=== PATIENT | female | born 1970 | race Native Hawaiian/Other Pacific Islander ===

== ENCOUNTER 2020-06-29 16:32 | Outpatient (REF) | payer OTHER, SELFPAY ==
[2020-06-29 17:17] LABS: COVID-19 Test Negative (Negative); IDNOW Serial# 55D5AD1C
== END 2020-06-29 16:33 | disposition home or self-care (01) ==
LOC: HO.EMPCOV 16:32
PROVIDERS: Visit Provider Internal Medicine
DX: Z20.828 Contact with and (suspected) exposure to other viral communicable diseases (principal)
CPT/HCPCS: 87635; C9803; U0003

== ENCOUNTER 2020-11-26 22:12 | Emergency (ER) | payer OTHER, SELFPAY ==
--- NOTE | ~2020-11-26 | XR_ITS ---
EXAMINATION: XR SHOULDER, RIGHT CLINICAL INFORMATION: Rule out fracture or dislocation COMPARISON: None TECHNIQUE: AP external rotation, Grashey, scapular Y, and axillary views of the right shoulder. FINDINGS: There is mild acromioclavicular osteoarthritis. Glenohumeral joint space is fairly well-maintained.. No fracture. Alignment is anatomic. Soft tissues are normal with no abnormal calcifications. XR/XR shoulder RT min 2V IMPRESSION: Mild right acromioclavicular joint arthrosis. No acute osseous abnormality.
[2020-11-26 22:47] VITALS: BP 137/84; PULSE 92; RESP 16; TEMP 36.4; O2SAT 98; BMI 26.6
[2020-11-27] MEDS: oxyCODONE HCl Immed Release 5 MG TABLET PO (01:03)
--- NOTE | 2020-11-27 01:20 | ED_ITS ---
HPI - Extremity Problem General Chief complaint: Extremity Injury, Upper Stated complaint: shoulder inj Time Seen by Provider: 11/27/20 00:52 History of Present Illness HPI Narrative: 50-year-old healthy female presenting to the ED after right shoulder injury. Patient states she was exercising when he fell and then heard a pop. Since is having intense right upper shoulder pain. Denies head injury or trauma. Denies chest pain or shortness of breath. Did not take any medication before coming in. Has no previous injuries to this shoulder. Related Data Allergies Allergy/AdvReac Type Severity Reaction Status Date / Time ampicillin Allergy Unknown hives Verified 08/04/19 00:00 terbutaline Allergy Unknown hives Verified 08/04/19 00:00 bee venom Allergy Unknown anaphylaxis Uncoded 08/04/19 00:00 Review of Systems Review of Systems: Constitutional : No Weight loss, No Fever, No Chills, No Night Sweats, No Fatigue, No Malaise ENT/Mouth : No Hearing loss, No Ear Pain, No Nasal Congestion, No Sinus Pain, No Hoarseness, No sore throat, No Rhinorrhea, No Swallowing Difficulty Eyes: No Eye Pain, No Swelling, No Redness, No Foreign Body, No Discharge, No Vision Changes Cardiovascular : No Chest Pain, No SOB, No Dyspnea on Exertion, No Orthopnea, No Edema, No Palpitations Respiratory : No Cough, No Sputum, No Wheezing, No Smoke Exposure, No Dyspnea Gastrointestinal : No Nausea, No Vomiting, No Diarrhea, No Constipation, No abdominal Pain, No Hematochezia, No Melena Genitourinary : no irregular bleeding, No Dysuria, No Urinary Frequency, No Hematuria, No Urinary Incontinence, No Urgency, No Flank Pain, No Urinary Flow Changes, No Hesitancy Musculoskeletal : + joint pain, + Myalgias, No Joint Swelling Skin : No Skin Lesions, No rash Neuro : No Weakness, No Numbness, No Paresthesias, No Loss of Consciousness, No Dizziness, No Headache Psych : No Anxiety/Panic, No Depression, No SI/HI/AH/VH, No Social Issues, Heme/Lymph: No Bruising, No Bleeding,No Lymphadenopathy Endocrine : No Polyuria, No Polydipsia, No Temperature Intolerance PMFSH Past Medical History Attestation statement: The following information was validated with the patient. Source: old records reviewed and nursing notes reviewed Medical History (Updated 11/27/20 @ 01:22 by MATILDA Rinaldi) Depression Social History Social History Advance Directives: No Advance Directives Information Provided: No Physical Exam Vital Signs: Vital Signs: Last Vital Signs Temp 97.5 F 11/26/20 22:47 Pulse 92 11/26/20 22:47 Resp 16 11/26/20 22:47 BP 137/84 11/26/20 22:47 Pulse Ox 98 11/26/20 22:47 Body Mass Index 26.6 vital signs have been reviewed as normal and appeared to be correct. Blood pressure normal. Heart rate normal. Respiration rate normal. Temperature normal. Oxygen saturation normal. Appearance: Alert. Oriented X3. Mild acute distress. Head: Normal external exam. Normocephalic. Atraumatic. No Torres signs noted. No raccoon eyes noted Eyes: PERRLA. Conjunctiva and sclera normal. Eyelids normal. ENT: Moist mucous membranes. No trismus noted. No drooling noted. No muffled voice noted. Neck: Normal inspection. Neck supple. FROM. No meningeal signs. No neck mass noted. CVS: Pulses normal throughout. Respiratory: No respiratory distress. Painless inspiration. Chest nontender. No clavicular tenderness Abdomen: Soft and nontender. . No distention noted. No visible injury noted. Back: No CVA tenderness. Full range of motion noted. Skin: Skin warm and dry. Normal skin color. Normal skin turgor. No rashes/lesions/lacerations noted. Extremities: No lower extremity edema. Extremities exhibit normal range of motion except RUE-patient with slight limitation flexion and extension of right shoulder pain to palpation the great proximal humerus over the AC joint. Gross edema erythema or ecchymosis. No gross deformity. Clavicular tenderness. Extremities otherwise nontender. Patient neurovascularly intact good distal pulses good capillary refill Neuro: Oriented X 3. No motor deficit. No sensory deficit. Reflexes normal. Course Reevaluation(s) Reevaluation #1: Plain film with evidence of mild right AC joint arthrosis IAC some mild widening concerning for AC joint separation will place patient in a sling advise close outpatient orthopedic follow-up and strict return precautions patient comfortable with this plan will discharge home at this time. MDM - Extremity (Nontraumatic) MDM Narrative Medical decision making narrative: Patient's vital signs are stable and she is afebrile. Patient presenting to the ED after right shoulder injury with concern for fracture. Patient with pain to palpation over the right AC joint. Will obtain plain film due to the absence of fracture or dislocation. AC joint separation remains on differential. Will medicate with oral oxycodone and continue to monitor pending the above. No other signs of acute injury or trauma patient otherwise hemodynamically stable. Discharge Plan Discharge Clinical Impression: Acromioclavicular (joint) (ligament) sprain Patient Disposition: Home, Self-Care Instructions: Acromioclavicular Separation (ED) Additional Instructions: You were seen in the emergency department today for right shoulder pain after injury. There was evidence of some separation to your right AC joint likely a sprain of this ligament. Use the sling as needed for comfort. Use Motrin and Tylenol home for pain control. Apply ice for the next 72 hours then switch to heat. Follow up with Orthopedics in the next 1-2 weeks especially if pain persists. Referrals: Jeronimo Drummond MD [Physician] - 1 week Interventions: ED Discharge Assessment Last Done: 11/27/20 01:40 Discharge Date/Time: 11/27/20 01:42 Print Language: [place]
== END 2020-11-27 01:42 | disposition home or self-care (01) ==
PROVIDERS: Emergency Provider Student in an Organized Health Care Education/Training Program
DX: S43.51XA Sprain of right acromioclavicular joint, initial encounter (principal); M25.511 Pain in right shoulder; X58.XXXA Exposure to other specified factors, initial encounter; Y93.9 Activity, unspecified; Y92.9 Unspecified place or not applicable; Y99.9 Unspecified external cause status
CPT/HCPCS: 73030; 99283

== ENCOUNTER 2020-12-18 08:47 | Outpatient (REF) | payer OTHER, SELFPAY | END 2020-12-18 08:48 | disposition home or self-care (01) | LOC: HO.MAMMO 08:47 | PROVIDERS: Visit Provider Nurse Practitioner Family | DX: Z13.89 Encounter for screening for other disorder (principal) ==

== ENCOUNTER → 2021-11-25 10:41 | Outpatient (BNVA) | payer OTHER, SELFPAY | PROVIDERS: Visit Provider Physician Assistant Medical | DX: Z13.89 Encounter for screening for other disorder (principal) | CPT/HCPCS: 99202 ==

== ENCOUNTER → 2023-04-04 14:41 | Outpatient (BNVA) | payer OTHER, SELFPAY | DX: Z13.89 Encounter for screening for other disorder (principal) | CPT/HCPCS: 99202 ==

== ENCOUNTER → 2023-04-09 11:00 | Outpatient (BNVA) | payer OTHER, SELFPAY | PROVIDERS: Visit Provider Physician Assistant Medical | DX: Z13.89 Encounter for screening for other disorder (principal) | CPT/HCPCS: 99213 ==